=== PATIENT | male | born 1980 | race Caucasian/White ===

== ENCOUNTER 2018-03-14 00:35 | Emergency (ER) | payer OTHER ==
[~2018-03-14] VITALS: Ht 177.8 cm; Wt 72.3 kg
[2018-03-14] MEDS ORDERED: LIDOCAINE20 MG/1 M5 PO (01:57)
[2018-03-14] MEDS ORDERED: PEN-VEE K,VEET500 MG PO (01:57)
[2018-03-14] MEDS ORDERED: NORCO 10/3251 TABLET PO (01:57)
[2018-03-14] MEDS ORDERED: PREDNISONE20 MG PO (01:58)
[2018-03-14 03:26] VITALS: BP 130/87
== END 2018-03-14 03:28 | disposition home or self-care (01) ==
LOC: EME 00:35
DX: K08.89 Other specified disorders of teeth and supporting structures (principal); N28.9 Disorder of kidney and ureter, unspecified
CPT/HCPCS: 99281; 99283